=== PATIENT | male | born 1965 | race Two or more races ===

== ENCOUNTER 2025-08-04 09:51 | Emergency (ER) | payer MEDICAID, SELFPAY ==
[2025-08-04 09:54] VITALS: BP 153/99; PULSE 81; RESP 19; TEMP 36.5; O2SAT 95
[2025-08-04 10:08] VITALS: PULSE 78; O2SAT 96; BMI 34.9
[2025-08-04 10:13] VITALS: BP 167/94; PULSE 85; RESP 13; TEMP 36.8; O2SAT 96
--- NOTE | 2025-08-04 10:35 | EKG_ITS ---
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
--- NOTE | 2025-08-04 10:37 | EDNOTE_ITS ---
ED Dizzyness RME/HPI General Chief Complaint: Dizziness Stated Complaint: DIZZINESS Time Seen by Provider: 08/04/25 10:15 Arrival date/time: 08/04/25 09:51 RME / HPI RME / HPI Narrative: 60 year old male with history of vertigo presents to the ED BIBA from home for evaluation of room-spinning dizziness beginning at 06:30 AM today after waking. Reportedly had difficulty getting out of bed due to the dizziness though states he was able to walk with assistance. States his dizziness is aggravated with head movements. Accompanied by nausea and vomiting. Reportedly has experienced similar dizziness before and diagnosed with Vertigo. However, states he has not been prescribed any medications for it. Last episode of vertigo occurred ~ 1 year ago. No other associated symptoms or complaints reported. Denies changes to his speech, vision, or difficulty walking due to weakness. Related Data Previous Rx's ?Medication ?Instructions ?Recorded blood pressure monitor (Blood #1 ea 09/19/22 Pressure Kit) Allergies Allergy/AdvReac Type Severity Reaction Status Date / Time Penicillins Allergy Verified 09/09/22 17:07 Review of Systems Review of Systems Systems Reviewed: All systems reviewed, normal except as documented Past Medical History Past Medical History NEUROLOGIC: Positive Neurological Disorders (dizziness) CARDIAC: Positive Cardiac Disorders GASTROINTESTINAL: Positive Gall Bladder Disease PSYCHO/SOCIAL: Positive Anxiety Family History FAMILY HISTORY: Negative Family Respiratory Disorders, Family Cardiac Disorders or Family Gastrointestinal Problems Surgical History SURGICAL: Negative Abdominal Surgery Social History SMOKING STATUS: Former smoker SECOND HAND EXPOSURE: No ED Exam Narrative Physical exam: Generally patient is alert and in no obvious distress, eyes show no vertical nystagmus, neurologic exam shows no ataxia with [id number] movements intact bilaterally, no focal motor deficits, Stephen Coma Scale 15. Neck showed no JVD no bruits, heart regular rate and rhythm, lungs clear to auscultation equal bi laterally, abdomen soft nontender, skin is warm pale and dry Course Quality Measures none Orders Category Date Time Status EKG (ED ONLY) *Do not use* NOW Care 08/04/25 10:35 Completed EKG (ED Only) Stat Exams 08/04/25 10:35 Draft CBC Stat Lab 08/04/25 11:00 Completed CMP [Comprehensive Metabolic Panel] Stat Lab 08/04/25 11:00 Results Meclizine HCl [Antivert] Med 08/04/25 10:35 Discontinued 25 mg PO X1 ONE Vital Signs Vital signs: Vital Signs Temperature 97.7 F 08/04/25 09:54 Pulse Rate 81 08/04/25 09:54 Respiratory Rate 19 08/04/25 09:54 Blood Pressure 153/99 H 08/04/25 09:54 Pulse Oximetry (%) 95 08/04/25 09:54 Oxygen Delivery Method Room Air 08/04/25 09:54 Pulse ox is 95% on room air which is adequate. Dizziness MDM Narrative MDM Narrative:: ICecilia, am scribing for and in the presence of Dr. Marie. Patient has no historical or physical findings for posterior circulation stroke. Blood work was unremarkable. I interpreted all labs. EKG showed normal sinus rhythm at a rate of 76 without ischemic change or ectopy. Patient denies have any chest pain pressure tightness or heaviness. He was given meclizine 25 mg p.o. He will be discharged on meclizine and Zofran to be taken as prescribed. He has felt this way multiple times in the past. Follow-up with his doctor. Return to ER as needed or if condition worsens. This patient's dizziness is not continuous and is episodic and made worse with head movement. Patient data External records reviewed:: [facility] previous records and EMS form Clinical information provided by:: patient and EMS Social determinants that could affect healthcare access:: none Patient has the following chronic illnesses:: Vertigo How is presenting disease/condition affected by chronic disease/condition?: exacerbated by Evaluation data The following diagnostics were reviewed and interpreted by me:: lab results and EKG tracing(s) Lab and/or radiology exams considered but not ordered:: None Interpretation Summary: none Medications / Prescriptions Medications or Prescriptions considered but not ordered:: None Medication administrations:: Medication Administration History Discontinued Medications Meclizine HCl (Meclizine Hcl 25 Mg Tablet) 25 mg PO X1 ONE Stop: 08/04/25 10:36 Last Admin: 08/04/25 11:03 Dose: 25 mg Documented By: BENJAMÍN See above Consultations Consultation(s) initiated? (list below): No Diagnosis Most likely diagnosis given after review of the tests above:: none Admission Indicated Admission indicated?: not indicated Admission Request Was there a request for admission?: No Disposition Plan Disposition Plan: other (specify) Discharge Plan Plan Patient Disposition: HOME (Self Care) Prescriptions/Referrals Prescriptions/Med Rec: No Action (DME) blood pressure monitor [Blood Pressure Kit] Kit See Rx Instructions .Route Qty: 1 0RF Rx Instructions: As directed Referrals: Neymar Mann MD [Primary Care Provider, Family Practice] - In 1 week Problem List Clinical Impression: Benign paroxysmal positional vertigo Patient/Caregiver Discharge Instructions Education Materials: ED Vertigo, Unspecified Additional Instructions: Take the medication as prescribed. Follow-up with your doctor. Return to ER as needed or if condition worsens. Print Language: Arabic Stand Alone Forms: Valeria Award Info., Patient Portal Info Letter
[2025-08-04] MEDS: MECLIZINE HCL 25 MG TABLET PO (11:03)
[2025-08-04 11:12] LABS: Basophils # (Auto) 0.0 Thou/mm3 (0.0-0.2); Basophils % (Auto) 0 % (0-2.5); Eosinophils # (Auto) 0.0 Thou/mm3 (0.0-0.5); Eosinophils % (Auto) 0 % (0-10); Hematocrit 46.3 % (41.0-53.0); Hemoglobin 16.0 g/dL (13.5-16.0); Immature Granulocytes Auto 0.02 Thou/mm3 (0.00-0.00); Lymphocytes # (Auto) 0.9 Thou/mm3 (1.0-4.8); Lymphocytes % (Auto) 11 % (10-50); Mean Corpuscular HGB Conc 34.6 g/dl (31.0-37.0); Mean Corpuscular Hemoglobin 29.3 pg (25.0-35.0); Mean Corpuscular Volume 85 fL (80-100); Monocytes # (Auto) 0.3 Thou/mm3 (0.0-0.8); Monocytes % (Auto) 3 % (0-12); Neutrophils # (Auto) 7.4 Thou/mm3 (1.8-7.7); Neutrophils % (Auto) 86 % (37-80); Nucleated Red Blood Cell # 0.00 Thou/mm3 (0.00-0.00); Nucleated Red Blood Cell % 0 /100 WBC (0); Platelet Count 198 Thou/mm3 (140-440); RDW Standard Deviation 41.5 fL (35.1-43.9); Red Blood Count 5.46 Miln/mm3 (4.50-5.90); White Blood Count 8.7 Thou/mm3 (3.8-10.6)
[2025-08-04 11:36] LABS: Alanine Aminotransferase 35 U/L (10-49); Albumin, Serum 4.5 gm/dL (3.5-5.0); Albumin/Globulin Ratio 1.5 (1.2-2.2); Alkaline Phosphatase 95 U/L (46-116); Anion Gap 9 (7-16); Aspartate Amino Transferase 23 U/L (0-34); BUN/Creatinine Ratio 16 Ratio (12-20); Blood Urea Nitrogen 16 mg/dL (9-23); Calcium 9.0 mg/dL (8.3-10.6); Calcium (Corrected) 9.0 mg/dL (8.5-10.1); Carbon Dioxide 26.4 mMol/L (20.0-31.0); Chloride 107 mMol/L (98-107); Creatinine (Component) 1.0 mg/dL (0.6-1.3); Estimated Creatinine Clearance 94.3 mL/min (>60); Globulin 3.1 gm/dL (2.3-3.5); Glucose 124 mg/dL (74-106); Osmolality,Calculated 285 (275-295); Potassium 4.4 mMol/L (3.4-5.1); Sodium 142 mMol/L (136-145); Total Protein 7.6 gm/dL (5.7-8.2); eGFR > 60 See Note
[2025-08-04 11:58] LABS: Bilirubin,Total 0.9 mg/dL (0.3-1.2)
[2025-08-04 12:16] VITALS: BP 186/116; PULSE 83; RESP 18; TEMP 36.9; O2SAT 98
[2025-08-04 12:24] VITALS: BP 148/95
[2025-08-04 13:50] VITALS: BP 146/95; PULSE 92; RESP 12; O2SAT 98
== END 2025-08-04 13:52 | disposition home or self-care (01) ==
PROVIDERS: Emergency Provider Emergency Medicine; PCP Family Medicine
DX: H81.10 Benign paroxysmal vertigo, unspecified ear (principal)
CPT/HCPCS: 36415; 80053; 85025; 93005; 99283; A9270